=== PATIENT | male | born 1980 | race African-American/Black ===

== ENCOUNTER 2020-07-14 15:05 | Emergency (ER) | payer OTHER ==
[~2020-07-14] VITALS: Ht 180.3 cm; Wt 104.3 kg
[2020-07-14] MEDS ORDERED: IBUPROFEN 800800 MG PO (16:24)
[2020-07-14 16:33] VITALS: BP 124/70
== END 2020-07-14 16:34 | disposition home or self-care (01) ==
LOC: M.ERS 15:05
DX: S01.412A Laceration without foreign body of left cheek and temporomandibular area, initial encounter (principal); S01.411A Laceration without foreign body of right cheek and temporomandibular area, initial encounter; S01.81XA Laceration without foreign body of other part of head, initial encounter; Z91.012 Allergy to eggs; W22.8XXA Striking against or struck by other objects, initial encounter; Y93.89 Activity, other specified; Y92.89 Other specified places as the place of occurrence of the external cause; Y99.8 Other external cause status